=== PATIENT | female | born 1970 | race African-American/Black ===

== ENCOUNTER 2020-07-02 23:24 | Emergency (ER) | payer SELFPAY ==
[~2020-07-02] VITALS: Ht 167.6 cm; Wt 74.8 kg
[2020-07-03 01:20] VITALS: BP 164/83
== END 2020-07-03 01:57 | disposition home or self-care (01) ==
LOC: ER 23:24
DX: F41.9 Anxiety disorder, unspecified (principal); R11.10 Vomiting, unspecified
CPT/HCPCS: 99283; J7030